=== PATIENT | male | born 1995 | race Caucasian/White ===

== ENCOUNTER 2021-12-27 09:20 | Emergency (ER) | payer SELFPAY ==
[~2021-12-27] VITALS: Ht 185.4 cm; Wt 145.2 kg
[~2021-12-27 09:20] MED LIST: HYDACE5 PO; IBUP600 PO; Keflex500 MG PO
== END 2021-12-27 10:23 | disposition home or self-care (01) ==
LOC: ER 09:20
DX: S92.315A Nondisplaced fracture of first metatarsal bone, left foot, initial encounter for closed fracture (principal); W22.8XXA Striking against or struck by other objects, initial encounter
CPT/HCPCS: 29515; 73630; 99283-25